=== PATIENT | male | born 1995 | race African-American/Black ===

== ENCOUNTER 2020-05-17 11:35 | Emergency (ER) | payer OTHER, SELFPAY ==
--- NOTE | 2020-05-17 11:51 | ED.URI ---
HPI - URI/Sore Throat General Chief Complaint: Upper Respiratory Infection Stated Complaint: sore throat/ear/headache Source: patient and RN notes reviewed Mode of arrival: ambulatory Limitations: no limitations History of Present Illness HPI Narrative: 24-year-old male presents to [facility] with complaints of a sore throat that started yesterday, woke up this morning with right ear pain. Pain with swallowing. Swollen lymph nodes. States he tried teas [id number] medication and the pain swelling is not getting any better. Denies any sick contacts. Denies fevers. No chest pain or shortness of breath. No abdominal pain, no nausea, vomiting or diarrhea. Related Data Allergies Allergy/AdvReac Type Severity Reaction Status Date / Time ibuprofen AdvReac Intermediate Swelling Verified 05/17/20 11:45 Review of Systems Review of Systems: Narrative: CONSTITUTIONAL: Denies fever, chills, or sweats. EYES: Denies visual changes, redness, or discharge. ENT: Denies rhinorrhea, congestion, or otalgia. Sore throat. CARDIOVASCULAR: Denies chest pain, palpitations, or edema. RESPIRATORY: Denies cough or dyspnea. GASTROINTESTINAL: Denies abdominal pain, nausea, vomiting, or diarrhea. GENITOURINARY: Denies dysuria or hematuria. SKIN: Denies rash or itching. MUSCULOSKELETAL: Denies back pain, joint pain, or myalgia. NEUROLOGIC: Denies headache, numbness, or weakness. PSYCHIATRIC: Denies anxiety or depression. All other systems reviewed are negative, except as documented in HPI. PMFSH Social History Social History Gender identity (if verbalized by the patient): Male Comments Patient denies any past medical or surgical history. At the time of my signature, I reviewed and agree with the nursing past medical, surgical, social, and family history. There is no relevant family history pertinent to the patient complaint. Exam Narrative: Exam Narrative: GENERAL: This is a well-nourished, well-developed patient, in no apparent distress. HEAD: normocephalic, atraumatic. EYES: PERRL. Sclera clear/white. Vision is grossly intact. EARS: External ears normal, auditory canals clear and without drainage, TMs normal without perforation. Hearing grossly intact. NOSE: External nose normal with no obvious nasal discharge, nares without redness, no rhinorrhea. THROAT: Mucous membranes moist. Posterior pharynx red, uvula midline, bilateral tonsils +2-3 exudate noted. NECK: Neck supple, non-tender. Positive bilateral lymphadenopathy. No masses or thyromegaly. CARDIOVASCULAR: Regular rate and rhythm without murmurs, gallops, or rubs. RESPIRATORY: Clear to auscultation. Breath sounds equal bilaterally. No wheezes, rales, or rhonchi. GASTROINTESTINAL: Abdomen soft, non-tender, nondistended. Bowel sounds are active. No hepato-splenomegaly, or palpable masses. No guarding. SKIN: warm, intact with no suspicious lesions or rash, good texture and turgor. NEURO: awake, alert, and oriented to person, place and time. There were no obvious focal neurologic abnormalities. EXTREMITIES: No clubbing, cyanosis, or edema. No joint tenderness, effusion, or edema noted. No calf tenderness. Negative Homans sign bilaterally. BACK: Nontender without deformity or crepitance. No flank tenderness. Course Vital Signs Vital signs: Vital Signs Temperature 98.5 F 05/17/20 11:57 Pulse Rate 81 05/17/20 11:57 Respiratory Rate 16 05/17/20 11:57 Blood Pressure 131/96 H 05/17/20 11:57 Pulse Oximetry 98 05/17/20 11:57 Temperature 98.5 F 05/17/20 11:57 Pulse Rate 81 05/17/20 11:57 Respiratory Rate 16 05/17/20 11:57 Blood Pressure 131/96 H 05/17/20 11:57 Pulse Oximetry 98 05/17/20 11:57 Reviewed, within defined limits MDM - URI/Sore Throat Lab Data Attestation: I reviewed the patient's lab results. Labs: Strep Screen Positive Group A Strep *(Reference Ra
[2020-05-17 11:57] VITALS: BP 131/96; PULSE 81; RESP 16; TEMP 36.9; O2SAT 98
== END 2020-05-17 12:08 | disposition home or self-care (01) ==
PROVIDERS: Emergency Provider Nurse Practitioner; PCP Internal Medicine
DX: J02.0 Streptococcal pharyngitis (principal)
CPT/HCPCS: 87880; 99213; G0463

== ENCOUNTER 2020-09-22 11:44 | Emergency (ER) | payer OTHER, SELFPAY ==
[2020-09-22 11:51] VITALS: BP 131/89; PULSE 67; RESP 16; TEMP 36.8; O2SAT 100
--- NOTE | 2020-09-22 12:31 | ED.URI ---
HPI - URI/Sore Throat General Chief Complaint: Upper Respiratory Infection Stated Complaint: Congestion,Headache Source: patient and RN notes reviewed Limitations: no limitations History of Present Illness HPI Narrative: The patient, a non-smoker/nondrinker with a prior history of past Covid illness, presents with sore throat. 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 No earache, fever; no Covid vaccination-no loss of taste/smell, CP, wheezing, S OB, rash, N/V/D/dehydration. Symptoms are mild slightly worse at night Related Data Allergies Allergy/AdvReac Type Severity Reaction Status Date / Time ibuprofen AdvReac Intermediate Swelling Verified 09/22/20 11:55 Review of Systems Review of Systems: Narrative: General/Constitutional: No weight loss,fever Eyes: N0: Redness,discharge Ears/Nose/Throat: No: Epistaxis,ear discharge Respiratory: Denies: Hemoptysis Gastrointestinal: No Vomiting, Bleeding-rectal Skin: No Lumps, eruption Neurologic: No Focal Weakness,Sz Hematologic: Denies: Petechiae/Purpura Psychiatric: No: Suicida ideationl All Other Systems: Reviewed and Negative PMFSH Social History Social History Gender identity (if verbalized by the patient): Male Comments At time of signature, agree with nursing past medical, surgical, social and family history. There is no relevant family history pertinent to the presenting complaint Exam Narrative: Exam Narrative: General Appearance: Well appearing, Well nourished EYE: PERRLA, Conjunctiva clear Ears: Auditory canal normal, TM normal Nose: Rhinorrhea, Mucousal erythema Mouth/Throat: MM moist, Uvula midline, Pharyngeal erythema Neck: Supple, No adenopathy Respiratory: No respiratory distress, Breath sounds equal, Clear to auscultation Cardiovascular: RRR, No JVD Musculoskeletal: Non tender, Normal strength Skin: Warm, Dry Neurological: A&O x3, CN II-XII intact Psychiatric: Normal mood, Normal affect Course Vital Signs Vital signs: Vital Signs Temperature 98.3 F 09/22/20 11:51 Pulse Rate 67 09/22/20 11:51 Respiratory Rate 16 09/22/20 11:51 Blood Pressure 131/89 09/22/20 11:51 Pulse Oximetry 100 09/22/20 11:51 Temperature 98.3 F 09/22/20 11:51 Pulse Rate 67 09/22/20 11:51 Respiratory Rate 16 09/22/20 11:51 Blood Pressure 131/89 09/22/20 11:51 Pulse Oximetry 100 09/22/20 11:51 MDM - URI/Sore Throat Lab Data Labs: Strep Screen Presumptive Negative *(Reference Range: Negative)* Discharge Plan Discharge Clinical Impression: Upper respiratory infection Patient Disposition: Home, Self-Care Condition: Stable Instructions: Pharyngitis (ED) Prescriptions: New codeine-guaifenesin 10-100 mg/5 mL liquid 7.5 ml PO Q6H PRN (Reason: cough) Qty: 118 RF: 0 azelastine 137 mcg (0.1 %) aerosol,spray 137 mcg NASAL Q12H Qty: 30 RF: 0 azithromycin 250 mg tablet See Rx Instructions .ROUTE .COMPLEX Qty: 6 RF: 0 Other Ambulatory Orders: SARS-CoV-2 RNA, Qual RT-PCR (Routine) Location: Determined by Patient Ordered By: Jovon Thomas Follow-up/Referrals: Aleksander,MD Guerrier ([place]) [Primary Care Provider] - Stand Alone Forms: Work/School Release IP
== END 2020-09-22 12:38 | disposition home or self-care (01) ==
PROVIDERS: Emergency Provider Emergency Medicine; PCP Internal Medicine
DX: J06.9 Acute upper respiratory infection, unspecified (principal)
CPT/HCPCS: 87081; 87147; 87880; 99213; G0463